=== PATIENT | male | born 1960 | race Caucasian/White ===

== ENCOUNTER 2020-10-10 11:45 | Outpatient (CLI) | payer BC, SELFPAY ==
--- NOTE | 2020-10-10 12:00 | XR_ITS ---
WS: [id number] Exam: XR chest 2V* [id number] Date/Time of Exam: 10/10/2020 12:05 PM Reason For Exam: ?UNDERLYING LUNG INFECTION No priors. Findings: The lungs are clear and fully expanded. Costophrenic angles are sharp. No infiltrates. Bronchovascula r relief appears normal. Cardiac silhouette is unremarkable. Bony elements are intact. XR/XR chest 2V* [id number] IMPRESSION: Unremarkable chest radiograph.
--- NOTE | 2020-10-10 12:00 | XR_ITS ---
WS: [id number] Exam: XR finger RT min 2V [id number] Date/Time of Exam: 10/10/2020 12:05 PM Reason For Exam: CHRONIC SWELLING OF R INDEX FINGER/PAIN No acute fracture or dislocation. Advanced degenerative change of the interphalangeal joints with bon e-on-bone articulation. Soft tissue swelling. No soft tissue foreign bodies. XR/XR finger RT min 2V [id number] IMPRESSION: 1. No fracture or dislocation. 2. Advanced DJD of the IP joints with [id number] articulation and soft tissue swelling. No radiographic signs of gout at this time.
== END 2020-10-10 11:46 | disposition home or self-care (01) ==
PROVIDERS: PCP Family Medicine; Visit Provider Family Medicine
DX: M79.89 Other specified soft tissue disorders (principal); M79.644 Pain in right finger(s); M19.041 Primary osteoarthritis, right hand
CPT/HCPCS: 71046; 73140

== ENCOUNTER 2021-08-18 10:14 | Outpatient (CLI) | payer BC, SELFPAY ==
--- NOTE | 2021-08-18 10:23 | XR_ITS ---
WS: [id number] Right hip, 2 views, AP pelvis, 08/18/2021 Clinical Data: R SIDED LOWER LEG PAIN/SCIATIC NERVE PAIN Comparison: None. Findings: No fractures or dislocations are seen. The right hip show sclerosis of the overlying acetabulum with an acetabular lip. There is narrowing of the joint space. The left hip shows an acetabular lip and na rrowing.. The soft tissues are not remarkable. The adjacent pelvis is normal. There is a fecal impaction. XR/XR hip RT 2-3V wo/w pel* [id number] Impression: Moderate osteoarthritis of the right hip. Moderate osteoarthritis of the left hip. Tonnis classification: grade 2: small cysts in femoral head/acetabulum or moder ate joint space narrowing or moderate loss of head sphericity of both hips.
--- NOTE | 2021-08-18 10:25 | XR_ITS ---
WS: [id number] Lumbar spine, AP, L5-S1 spot, lateral and both obliques, 08/18/2021 Clinical Data: SCIATIC NERVE PAIN/R SIDE LOWER LEG PAIN Comparison: None. Findings: No compression fractures or subluxation is seen. No disc space narrowing is seen. There is osteoarthr itic spurring of all the lumbar vertebral bodies. The transverse processes and SI joints are normal. The oblique films show no spondylolysis. XR/XR lumbar spine min 4V [id number] Impression: 1. Osteoarthritis of the lumbar vertebral bodies. 2. Negative for spondylolysis or spondylolisthesis.
== END 2021-08-18 10:15 | disposition home or self-care (01) ==
PROVIDERS: PCP Family Medicine; Visit Provider Family Medicine
DX: M54.31 Sciatica, right side (principal); M16.0 Bilateral primary osteoarthritis of hip
CPT/HCPCS: 72110; 73502

== ENCOUNTER → 2021-10-09 10:34 | Outpatient (BNVA) | payer BC, SELFPAY | PROVIDERS: PCP Family Medicine; Referring Provider Family Medicine; Visit Provider Specialist | DX: M16.0 Bilateral primary osteoarthritis of hip (principal) | CPT/HCPCS: 73502 ==

== ENCOUNTER 2021-10-11 06:00 | Outpatient (RCR) | payer BC, SELFPAY | END 2021-10-16 23:59 | disposition home or self-care (01) | LOC: GPT 06:00 | PROVIDERS: PCP Family Medicine; Referring Provider Specialist; Visit Provider Specialist | DX: M53.3 Sacrococcygeal disorders, not elsewhere classified (principal) | CPT/HCPCS: 97110; 97162 ==

== ENCOUNTER 2021-10-17 06:00 | Outpatient (RCR) | payer BC, SELFPAY | END 2021-11-13 23:59 | disposition home or self-care (01) | LOC: GPT 06:00 | PROVIDERS: PCP Family Medicine; Visit Provider Specialist | DX: M54.50 Low back pain, unspecified (principal) | CPT/HCPCS: 97110; 97140 ==

== ENCOUNTER 2021-11-14 06:00 | Outpatient (RCR) | payer BC, SELFPAY | END 2021-11-20 23:59 | disposition home or self-care (01) | LOC: GPT 06:00 | PROVIDERS: PCP Family Medicine; Visit Provider Specialist | DX: M54.50 Low back pain, unspecified (principal) | CPT/HCPCS: 97110 ==

== ENCOUNTER 2024-08-31 11:56 | Outpatient (CLI) | payer OTHER, SELFPAY ==
--- NOTE | 2024-08-31 12:07 | XR_ITS ---
WS: [id number] Thoracic spine, AP and lateral views, 08/31/2024 Clinical Data: LUMBAR REGION RADICULOPATHY Comparison: None. Findings: No compression fractures are seen. The disc heights are normal. Anterior osteoarthritis is seen at the thoracic vertebral bodies T4-T11. The paravertebral regions ar e normal. XR/XR thoracic spine 3V* [id number] Impression: Moderate osteoarthritis T4-T11.
--- NOTE | 2024-08-31 12:07 | XR_ITS ---
WS: [email or web address] Cervical spine, 3 views, 08/31/2024 Clinical Data: CERVICALGIA Comparison: None. Findings: No compression fractures are seen. There is degenerative disc narrowing at C6-C7. There are osteophytes and calcification of the anterior longitudinal ligaments from C2-C3 through C6-C7. There is posterior spurring at see 6-C7. Heights are normal. There is no prevertebral soft tissue swelling . The odontoid is unremarkable. The soft tissues of the neck show minimal calcification at the left c arotid bifurcation. The lung apices are normal. XR/XR cervical spine 3V* [id number] Impression: Moderate osteoarthritis from C2-C3 through C6/C7 with degenerative disc narrowi ng at C6/C7.
--- NOTE | 2024-08-31 12:07 | XR_ITS ---
WS: [email or web address] Lumbar spine, 3 views, Clinical Data: LUMBAR REGION RADICULOPATHY Comparison: Lumbar spine, 08/18/2021 Findings: No compression fractures or subluxation is seen. No disc space narrowing is seen. There is osteoarthr itic spurring of all the lumbar vertebral bodies. The transverse processes and SI joints are normal. There is a calcification overlying the inferior pole of the left kidney unchanged. XR/XR lumbar spine 2-3V* [id number] Impression: Osteoarthritis of all the lumbar vertebral bodies.
--- NOTE | 2024-08-31 12:07 | XR_ITS ---
WS: [email or web address] Right shoulder, 2 views, 08/31/2024 Clinical Data: BILATERAL SHOULDER PAIN Comparison: None. Findings: The glenohumeral joint shows narrowing and sclerosis. There is abundant periarticular calcification i n the lesser tuberosity. No fractures or dislocations are seen. The AC joint is normal. The adjacent right clavicle, right sca pula and ribs are normal. The soft tissues are unremarkable. XR/XR shoulder RT min 2V* [id number] Impression: Severe osteoarthritis of the right glenohumeral joint.
--- NOTE | 2024-08-31 12:07 | XR_ITS ---
WS: [email or web address] Left shoulder, 2 views, 08/31/2024 Clinical Data: BILATERAL SHOULDER PAIN Comparison: None. Findings: There is narrowing of the left glenohumeral joint. No erosion or deformity is seen. No fractures or dislocations are seen. The AC joint is normal. The adjacent left clavicle, left scapu la and ribs are normal. The soft tissues are unremarkable. XR/XR shoulder LT min 2V* [id number] Impression: Moderate osteoarthritis of left glenohumeral joint.
== END 2024-08-31 11:57 | disposition home or self-care (01) ==
LOC: RAD 12:02
PROVIDERS: Visit Provider Nurse Practitioner Family
DX: M54.16 Radiculopathy, lumbar region (principal); M47.894 Other spondylosis, thoracic region; M47.896 Other spondylosis, lumbar region; M50.323 Other cervical disc degeneration at C6-C7 level; M19.012 Primary osteoarthritis, left shoulder; M19.011 Primary osteoarthritis, right shoulder; N20.0 Calculus of kidney
CPT/HCPCS: 72040; 72072; 72100; 73030

== ENCOUNTER 2024-09-16 06:00 | Outpatient (RCR) | payer OTHER, SELFPAY | END 2024-10-16 23:59 | disposition home or self-care (01) | LOC: GPT 06:00 | PROVIDERS: Visit Provider Nurse Practitioner Family | DX: M47.27 Other spondylosis with radiculopathy, lumbosacral region (principal); M19.90 Unspecified osteoarthritis, unspecified site | CPT/HCPCS: 97110; 97112; 97140; 97161; 97530 ==

== ENCOUNTER 2024-10-17 06:00 | Outpatient (RCR) | payer OTHER, SELFPAY | END 2024-11-13 23:59 | disposition home or self-care (01) | LOC: GPT 06:00 | PROVIDERS: Visit Provider Nurse Practitioner Family | DX: M47.27 Other spondylosis with radiculopathy, lumbosacral region (principal); M19.90 Unspecified osteoarthritis, unspecified site | CPT/HCPCS: 97110; 97112; 97140; 97530 ==

== ENCOUNTER 2024-11-14 06:00 | Outpatient (RCR) | payer OTHER, SELFPAY | END 2024-12-14 23:59 | disposition home or self-care (01) | LOC: GPT 06:00 | PROVIDERS: Visit Provider Nurse Practitioner Family | DX: M47.27 Other spondylosis with radiculopathy, lumbosacral region (principal); M19.90 Unspecified osteoarthritis, unspecified site | CPT/HCPCS: 97110; 97112; 97164; 97530 ==

== ENCOUNTER 2024-12-15 06:00 | Outpatient (RCR) | payer OTHER, SELFPAY | END 2025-01-13 23:59 | disposition home or self-care (01) | LOC: GPT 06:00 | PROVIDERS: Visit Provider Nurse Practitioner Family | DX: M47.27 Other spondylosis with radiculopathy, lumbosacral region (principal); M19.90 Unspecified osteoarthritis, unspecified site | CPT/HCPCS: 97110; 97112; 97164 ==

== ENCOUNTER 2025-01-14 06:30 | Outpatient (RCR) | payer OTHER, SELFPAY | END 2025-02-09 12:51 | disposition home or self-care (01) | LOC: GPT 06:30 | PROVIDERS: Visit Provider Nurse Practitioner Family | DX: M47.27 Other spondylosis with radiculopathy, lumbosacral region (principal); M19.90 Unspecified osteoarthritis, unspecified site | CPT/HCPCS: 97110; 97530 ==